=== PATIENT | female | born 1980 | race Caucasian/White ===

== ENCOUNTER 2016-06-01 15:48 | Emergency (ER) | payer MEDICAID ==
--- NOTE | 2016-06-01 16:28 | ED Physician Chart ---
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 SHE NOW IS CONCERNED ABOUT THE PAIN AND ABRASION IN THE ACHILLES AREA. Allergies:: Allergies Allergy/AdvReac Type Severity Reaction Status Date / Time No Known Allergies Allergy Verified 06/01/16 16:01 Vitals:: Vital Signs - 8 hr 06/01/16 06/01/16 16:03 16:04 Temp 99.2 F HR 94 RR 16 BP 104/79 104/79 O2 Sat % 98 Historian:: Patient Review:: Nurse's Note Reviewed Review of Systems - Review of Systems General/Constitutional: No fever, No chills, No weight loss, No weakness, No diaphoresis, No edema, No loss of appetite Skin: No skin lesions, No rash, No bruising Head: No headache, No light-headedness Eyes: No loss of vision, No pain, No diplopia ENT: No earache, No nasal drainage, No sore throat, No tinnitus Neck: No neck pain, No swelling, No thyromegaly, No stiffness, No mass noted Cardio Vascular: No chest pain, No palpitations, No PND, No orthopnea, No edema Pulmonary: No SOB, No cough, No sputum, No wheezing GI: No nausea, No vomiting, No diarrhea, No pain, No melena, No hematochezia, No constipation, No hematemesis G/U: No dysuria, No frequency, No hematuria Musculoskeletal: Bone or joint pain (HEEL AREA OF THE FOOT HURTS), No back pain , No muscle pain Endocrine: No polyuria, No polydipsia Psychiatric: No prior psych history, No depression, No anxiety, No suicidal ideation Hematopoietic: No bruising, No lymphadenopathy Allergic/Immuno: No urticaria, No angioedema Neurological: No syncope, No focal symptoms, No weakness, No paresthesia, No headache, No seizure, No dizziness, No confusion, No vertigo Past Medical History - Past Medical History Obtainable: Yes Past Medical History: No significant medical hx Family History: None Social History: Non Smoker, No Alcohol, No Drug Use, Employed Surgical History: , other (TUBILIZATION) Family Medical History - Family Member Mother History Unknown: Yes Hx Family Coronary Artery Disease: Yes Hx Family Hypertension: Yes Physical Exam - Physical Examination General/Constitutional: Awake, Well-developed, well-nourished, Alert, No distress, GCS 15, Non-toxic appearing, Ambulatory Head: Atraumatic Eyes: Lids, conjuctiva normal, PERRL, EOMI Skin: Nl inspection, No rash, No skin lesions, No ecchymosis, Well hydrated, No lymphadenopathy ENMT: External ears, nose nl, Nasal exam nl, Lips, teeth, gums nl Neck: Nontender, Full ROM w/o pain, No JVD, No nuchal rigidity, No bruit, No mass, No stridor Respiratory: Nl effort/Exclusion, Clear to Auscultation, No Wheeze/Rhonchi/Rales Cardio Vascular: RRR, No murmur, gallop, rubs, NL S1 S2 GI: No tenderness/rebounding/guarding, No organomegaly, No hernia, Normal BS's, Nondistended, No mass/bruits, No McBurney tenderness : No CVA tenderness Extremities: Full ROM, normal strength in all extremities, No edema, Normal digits & nails Other Extremities comments:: THERE IS A TENDER AND SWOLLEN AREA OF THE ACHILLES TENDON. Neuro/Psych: Alert/oriented, DTR's symmetric, Normal sensory exam, Normal motor strength, Judgement/insight normal, Mood normal, Normal gait, No focal deficits Misc: normal gait, Normal back, No paraspinal tenderness Labs/Radiology/EKG Results - Radiology Results Results: X-RAY OF THE RIGHT FOOT = NEG FOR FRACTURE ED Septic Shock - . Is Septic Shock (SBP<90, OR Lactate>4 mmol\L) present?: No - <6hrs of presentation: Vital Signs: Vital Signs - 8 hr 06/01/16 06/01/16 16:03 16:04 Temp 99.2 F HR 94 RR 16 BP 104/79 104/79 O2 Sat % 98 Reassessment (Disposition) - Reassessment Reassessment Condition:: Improved - Diagnosis Diagnosis:: CONTUSION AND ABRASION OF THE RIGHT FOOT. - Aftercare/Follow up Instructions Aftercare/Follow-Up Instructions:: Counseled pt regarding lab results/diagnosis & need follow up, Refer to Discharge Instructions, Counseled pt & family regarding lab results/diagnosis & need follow up - Patient Disposition Discharge/Transfer:: Home Condition at Disposition:: Improved ED Discharge Plan - Patient Disposition Admit/Discharge/Transfer: PT DISCHARGED HOME Condition at Disposition: Improved
[2016-06-01 17:28] VITALS: BP 104/79
--- NOTE | 2016-06-02 10:29 | Diagnostic Imaging Report ---
Right foot (3 views) HISTORY: Pain, trauma No acute bony abnormalities are seen. No fractures. Joint spaces appear normal. IMPRESSION: No acute abnormalities. In the presence of recent trauma and persistent symptoms, a repeat radiograph in 5-7 days may be helpful for detection of a subtle or occult fracture.
== END 2016-06-01 17:15 | disposition home or self-care (01) ==
LOC: ER 15:48
DX: S90.31XA Contusion of right foot, initial encounter (principal); W22.8XXA Striking against or struck by other objects, initial encounter; Y93.89 Activity, other specified; Y92.89 Other specified places as the place of occurrence of the external cause; Y99.8 Other external cause status
CPT/HCPCS: 73630-TC-RT; Z7502

== ENCOUNTER 2017-06-26 08:21 | Emergency (ER) | payer MEDICAID ==
--- NOTE | 2017-06-26 11:04 | ED Physician Chart ---
ED Chief Complaint/HPI - Patient Information Date Seen:: 06/26/17 Time Seen:: 08:20 Chief Complaint:: Fever History of Present Illness:: onset x 3 days of fever, S/T, cough, and congestion; pt denies trauma, H/As, E/ As, neck pain, C/P, SOB, Abd. 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 Allergies:: Allergies Allergy/AdvReac Type Severity Reaction Status Date / Time No Known Allergies Allergy Verified 06/01/16 16:01 Vitals:: Vital Signs - 8 hr 06/26/17 06/26/17 08:22 08:42 Temp 98.7 F 98.7 F HR 106 106 RR 16 16 BP 106/63 106/63 Historian:: Patient Review:: Nurse's Note Reviewed ED Review of Systems - Review of Systems General/Constitutional: Fever, No chills, No weight loss, No weakness, No diaphoresis, No edema, No loss of appetite Skin: No skin lesions, No rash, No bruising Head: No headache, No light-headedness Eyes: No loss of vision, No pain, No diplopia ENT: No earache, Nasal drainage, Sore throat, No tinnitus Neck: No neck pain, No swelling, No thyromegaly, No stiffness, No mass noted Cardio Vascular: No chest pain, No palpitations, No PND, No orthopnea, No edema Pulmonary: No SOB, Cough, No sputum, No wheezing GI: No nausea, No vomiting, No diarrhea, No pain, No melena, No hematochezia, No constipation, No hematemesis G/U: No dysuria, No frequency, No hematuria Sponge Packer: No vaginal discharge, No abnormal vaginal bleed, No contraction Musculoskeletal: No bone or joint pain, No back pain, No muscle pain Endocrine: No polyuria, No polydipsia Psychiatric: No prior psych history, No depression, No anxiety, No suicidal ideation, No homicidal ideation, No auditory hallucination, No visual hallucination Hematopoietic: No bruising, No lymphadenopathy Allergic/Immuno: No urticaria, No angioedema Neurological: No syncope, No focal symptoms, No weakness, No paresthesia, No headache, No seizure, No dizziness, No confusion, No vertigo ED Past Medical History - Past Medical History Obtainable: Yes Past Medical History: No significant medical hx Family History: None Social History: Non Smoker, No Alcohol, No Drug Use, Surgical History: None Psychiatricy History: None Medication: Reviewed Family Medical History - Family Member Mother History Unknown: Yes Hx Family Coronary Artery Disease: Yes Hx Family Hypertension: Yes ED Physical Exam - Physical Examination General/Constitutional: Awake, Well-developed, well-nourished, Alert, No distress, GCS 15, Non-toxic appearing, Ambulatory Head: Atraumatic Eyes: Lids, conjuctiva normal, PERRL, EOMI Skin: Nl inspection, No rash, No skin lesions, No ecchymosis, Well hydrated, No lymphadenopathy ENMT: External ears, nose nl, TM canals nl, Nasal exam nl, Lips, teeth, gums nl , Tonsils nl Other ENMT comments:: Pharynx: Injected; no FBs; no exudates; no abscesses; + Nasal Congestion; Tonsils: WNL Neck: Nontender, Full ROM w/o pain, No JVD, No nuchal rigidity, No bruit, No mass, No stridor Other Neck comments:: supple; no meningeal signs; no cervical tenderness Respiratory: Nl effort/Exclusion, Clear to Auscultation, No Wheeze/Rhonchi/Rales Cardio Vascular: RRR, No murmur, gallop, rubs, NL S1 S2, Carotid/Femoral/Distal pulses equal bilaterally GI: No tenderness/rebounding/guarding, No organomegaly, No hernia, Normal BS's, Nondistended, No mass/bruits, No McBurney tenderness, Rectum exam nl Other GI comments:: no pulsatile masses : No CVA tenderness Extremities: No tenderness or effusion, Full ROM, normal strength in all extremities, No edema, Normal digits & nails Neuro/Psych: Alert/oriented, DTR's symmetric, Normal sensory exam, Normal motor strength, Judgement/insight normal, Mood normal, Normal gait, No focal deficits Other Neuro/Psych comments:: no focal signs Misc: Normal back, No paraspinal tenderness ED Septic Shock - . Is Septic Shock (SBP<90, OR Lactate>4 mmol\L) present?: No - <6hrs of presentation: Vital Signs: Vital Signs - 8 hr 06/26/17 06/26/17 08:22 08:42 Temp 98.7 F 98.7 F HR 106 106 RR 16 16 BP 106/63 106/63 ED Reassessment (Disposition) - Reassessment Reassessment:: pt tolerated po fluids well in ER; pt is asymptomatic upon discharge Reassessment Condition:: Improved - Diagnosis Diagnosis:: Sore Throat; Pharyngitis; Cough; Bronchitis; Congestion; Sinusitis; Fever; URI - Aftercare/Follow up Instructions Aftercare/Follow-Up Instructions:: Counseled pt regarding lab results/diagnosis & need follow up, Refer to Discharge Instructions, Counseled pt & family regarding lab results/diagnosis & need follow up Medication Prescribed:: Rx: Amoxicillin 500mg po tid x 10 days; Tylenol 500mg po qid prn fever/pain; Salt Water Gargles; Cool Mist Vaporizer; encourage fluids - Patient Disposition Discharge/Transfer:: Home Condition at Disposition:: Stable, Improved (RTER prn if existing s/s reoccur and/or get worse and/or any other new s/s occur; ACIs given for all above Dx; Refer to ENT Specialist/Orthopedic Technician TREVOR; F/U with PMD in one day or prn; RTER prn if concerned) ED Discharge Plan - Patient Disposition Admit/Discharge/Transfer: PT DISCHARGED HOME Condition at Disposition: Stable Prescriptions: Acetaminophen [Tylenol Extra Strength] 500 mg PO Q6HR PRN #20 tab PRN Reason: Fever > 101 Amoxicillin [Amoxicillin*] 500 mg PO TID #30 tab Instructions: Upper Respiratory Infection, Adult, [id number] Additional Instructions: Follow up with PCP in 24-48 hours. Return to ED if condition worsens. Take medications as prescribed. Forms: Work Release Form
== END 2017-06-26 08:55 | disposition home or self-care (01) ==
LOC: ER 08:21
DX: J02.9 Acute pharyngitis, unspecified (principal); J40 Bronchitis, not specified as acute or chronic; J32.9 Chronic sinusitis, unspecified; J06.9 Acute upper respiratory infection, unspecified
CPT/HCPCS: Z7502

== ENCOUNTER 2018-03-11 10:29 | Inpatient (IN) | payer MEDICAID ==
[2018-03-11] MEDS ORDERED: Sodium Chloride 0.9% 1,000 ML IV ONE (11:04)
[2018-03-11] MEDS ORDERED: Morphine Sulfate 2 mg/mL 1mL Syr IVP ONE (11:04)
--- NOTE | 2018-03-11 11:09 | ED Physician Chart ---
ED Chief Complaint/HPI - Patient Information Date Seen:: 03/11/18 Time Seen:: 10:55 Chief Complaint:: Abdominal Pain History of Present Illness:: onset x 3 weeks of intermittent, diffuse, crampy abdominal pain, N/V/D; pt denies trauma, H/As, S/T, neck pain, cough, C/P, SOB, A/C, Vb, VD, bleeding, fever, chills, or urinary s/s Allergies:: Allergies Allergy/AdvReac Type Severity Reaction Status Date / Time No Known Allergies Allergy Verified 06/01/16 16:01 Vitals:: Vital Signs - 8 hr 03/11/18 10:58 Temp 97.8 F HR 84 RR 16 BP 123/79 O2 Sat % 97 Historian:: Patient Review:: Nurse's Note Reviewed ED Review of Systems - Review of Systems General/Constitutional: No fever, No chills, No weight loss, No weakness, No diaphoresis, No edema, No loss of appetite Skin: No skin lesions, No rash, No bruising Head: No headache, No light-headedness Eyes: No loss of vision, No pain, No diplopia ENT: No earache, No nasal drainage, No sore throat, No tinnitus Neck: No neck pain, No swelling, No thyromegaly, No stiffness, No mass noted Cardio Vascular: No chest pain, No palpitations, No PND, No orthopnea, No edema Pulmonary: No SOB, No cough, No sputum, No wheezing GI: Nausea, Vomiting, Diarrhea, Pain, No melena, No hematochezia, No constipation, No hematemesis G/U: No dysuria, No frequency, No hematuria, No nacturia Clinic Assistant: No vaginal discharge, No abnormal vaginal bleed, No contraction Musculoskeletal: No bone or joint pain, No back pain, No muscle pain Endocrine: No polyuria, No polydipsia Psychiatric: No prior psych history, No depression, No anxiety, No suicidal ideation, No homicidal ideation, No auditory hallucination, No visual hallucination Hematopoietic: No bruising, No lymphadenopathy Allergic/Immuno: No urticaria, No angioedema Neurological: No syncope, No focal symptoms, No weakness, No paresthesia, No headache, No seizure, No dizziness, No confusion, No vertigo ED Past Medical History - Past Medical History Obtainable: Yes Past Medical History: No significant medical hx Family History: None Social History: Non Smoker, No Alcohol, No Drug Use, Single Surgical History: Psychiatricy History: None Medication: Reviewed Family Medical History - Family Member Mother History Unknown: Yes Hx Family Coronary Artery Disease: Yes Hx Family Hypertension: Yes ED Physical Exam - Physical Examination General/Constitutional: Awake, Well-developed, well-nourished, Alert, No distress, GCS 15, Non-toxic appearing, Ambulatory Head: Atraumatic Eyes: Lids, conjuctiva normal, PERRL, EOMI Skin: Nl inspection, No rash, No skin lesions, No ecchymosis, Well hydrated, No lymphadenopathy ENMT: External ears, nose nl, TM canals nl, Nasal exam nl, Lips, teeth, gums nl , Oropharynx nl, Tonsils nl Neck: Nontender, Full ROM w/o pain, No JVD, No nuchal rigidity, No bruit, No mass, No stridor Respiratory: Nl effort/Exclusion, Clear to Auscultation, No Wheeze/Rhonchi/Rales Cardio Vascular: RRR, No murmur, gallop, rubs, NL S1 S2, Carotid/Femoral/Distal pulses equal bilaterally GI: No tenderness/rebounding/guarding, No organomegaly, No hernia, Normal BS's, Nondistended, No mass/bruits, No McBurney tenderness : No CVA tenderness Extremities: No tenderness or effusion, Full ROM, normal strength in all extremities, No edema, Normal digits & nails Neuro/Psych: Alert/oriented, DTR's symmetric, Normal sensory exam, Normal motor strength, Judgement/insight normal, Mood normal, Normal gait, No focal deficits Misc: Normal back, No paraspinal tenderness ED Labs/Radiology/EKG Results - Lab Results Comments:: Reviewed - EKG Interpretations EKG Time:: 11:30 Rate & Rhythm: 85; NSR Comments:: non-specific st-t changes ED Septic Shock - . Is Septic Shock (SBP<90, OR Lactate>4 mmol\L) present?: No - <6hrs of presentation: Vital Signs: Vital Signs - 8 hr 03/11/18 10:58 Temp 97.8 F HR 84 RR 16 BP 123/79 O2 Sat % 97 ED Reassessment (Disposition) - Diagnosis Diagnosis:: Abdominal Pain, N/V/D
[2018-03-11 11:34] LABS: % EOSINOPHILS 0.9 % (0.0-5.0); % LYMPHOCYTES 12.2 % (20.0-50.0); % MONOCYTES 4.3 % (2.0-10.0); % NEUTROPHILS 82.6 % (40.0-80.0); EOSINOPHILE ABSOLUTE 0.1 Th/cmm (0.1-0.4); HEMATOCRIT 43.1 % (41.0-60); HEMOGLOBIN 14.4 gm/dL (12-16); LYMPHOCYTE ABSOLUTE 1.8 Th/cmm (1.5-3.0); MEAN CELL VOLUME 92.3 fl (81-100); MEAN CORPUSCULAR HEMOGLOBIN 30.8 pg (27.0-31.0); MEAN CORPUSCULAR HGB CONC 33.3 pg (28.0-36.0); MEAN PLATELET VOLUME 8.9 fl; MONOCYTE ABSOLUTE 0.6 Th/cmm (0.3-1.0); NEUTROPHILE ABSOLUTE 12.2 Th/cmm (1.8-8.0); PLATELET COUNT 305 Th/cmm (150-400); RED BLOOD COUNT 4.67 Mil/cmm (3.80-5.10); RED CELL DISTRIBUTION WIDTH 13.9 % (11.5-20.0); WHITE BLOOD COUNT 14.7 Th/cmm (4.8-10.8)
[2018-03-11] MEDS ORDERED: Morphine Sulfate 2 mg/mL 1mL Syr ONE (11:34)
[2018-03-11 11:40] LABS: INR 0.95 (0.5-1.4); PROTHROMBIN TIME (TEST) 9.9 SECONDS (9.5-11.5)
[2018-03-11] MEDS ORDERED: IOHEXOL 300mgI/mL 100 ML VIAL ONE (12:37)
[2018-03-11 13:11] LABS: ALB/GLOB RATIO 1.3 (1.0-1.8); ALBUMIN 4.1 gm/dL (3.7-5.3); ALKALINE PHOSPHATASE 96 U/L (34-104); AMYLASE SERUM 106 U/L (29-103); ANION GAP 16.3 (7.0-16.0); BILIRUBIN,TOTAL 0.5 mg/dL (0.3-1.0); BUN - UREA NITROGEN 10 mg/dL (7-25); CALCIUM SERUM 9.6 mg/dL (8.6-10.3); CARBON DIOXIDE 20.6 mEq/L (21.0-31.0); CHLORIDE 107 mEq/L (98-107); CHOLESTEROL 160 mg/dL (<200); CREATININE - SERUM 0.7 mg/dL (0.6-1.2); CREATININE KINASE 151 U/L (30-223); GFR AFRICAN-AMERICAN > 60.0 ml/min (>90); GFR NON AFRICAN-AMERICAN > 60.0 ml/min; GLUCOSE 87 mg/dL (70-105); HDL -HIGH DENSITY LIPOPROTEIN 64 mg/dL (23-92); LIPASE 66 U/L (11-82); POTASSIUM SERUM 3.9 mEq/L (3.5-5.1); SGOT 45 U/L (13-39); SGPT/ALT 48 U/L (7-52); SODIUM SERUM 140 mEq/L (136-145); TOTAL PROTEIN,SERUM 7.2 gm/dL (6.0-8.3); TRIGLYCERIDES 70 mg/dL (<150)
--- NOTE | 2018-03-11 14:35 | Diagnostic Imaging Report ---
CT scan abdomen and pelvis with intravenous contrast HISTORY: Pain Total DLP equals 519 CTDI equals 10.9 Following administration of intravenous contrast, axial sections were obtained from the xiphoid process down to the pubic symphysis. The liver exhibits a normal size and contour. There is a homogeneous parenchyma. No focal lesions. The spleen appears normal. No abnormality seen in the region of the pancreas. No focal renal lesions. No hydronephrosis. The exam of the pelvis demonstrates preservation of normal fat planes. No abnormal soft tissue masses. Small amount of free fluid seen in the cul-de-sac region of the pelvis. Limited visualization of the pancreas with no obvious evidence of inflammatory change in the right lower quadrant. IMPRESSION: 1. Small amount of free fluid within the cul-de-sac region of the pelvis. This may be on a physiologic basis and should be correlated clinically and with the menstrual status. If necessary, a follow-up ultrasound exam may be helpful. 2. Mildly distended stool-filled cecum and proximal ascending colon. Limited delineation of the appendix. However, no obvious inflammatory change seen in the right lower quadrant.
[2018-03-11 16:53] LABS: URINE SOURCE CLEAN C
[2018-03-11 16:55] LABS: URINE BILIRUBIN NEGATIVE (NEGATIVE); URINE BLOOD SMALL (NEGATIVE); URINE GLUCOSE (UA) NEGATIVE (NEGATIVE); URINE KETONE TRACE mg/dL (NEGATIVE); URINE LEUKOCYTE ESTERASE NEGATIVE (NEGATIVE); URINE MICROSCOPIC INDICATED? YES; URINE NITRATE NEGATIVE (NEGATIVE); URINE PH 5.5 (4.6 - 8.0); URINE PROTEIN NEGATIVE (NEGATIVE); URINE UROBILINOGEN 0.2 E.U./dL (0.2 - 1.0)
[2018-03-11 17:01] LABS: URINE CLARITY CLEAR (CLEAR); URINE COLOR YELLOW
[2018-03-11 17:02] LABS: URINE BACTERIA FEW /hpf (NONE SEEN); URINE EPITHELIAL CELLS FEW /lpf (FEW); URINE RBC NONE SEEN /hpf (0-5)
[2018-03-11] MEDS ORDERED: Morphine Sulfate 2 mg/mL 1mL Syr IVP PRN (19:05)
[2018-03-11] MEDS ORDERED: D5-0.45NS 1,000 ML IV ONE (20:00)
[2018-03-11] MEDS ORDERED: metroNIDAZOLE 500mg/NS 100mL 500 MG/100 ML BAG IV SCH (21:00)
[2018-03-11] MEDS ORDERED: Morphine Sulfate 4 mg/mL 1mL Syr IM PRN (21:13)
[2018-03-11] MEDS ORDERED: Lactated Ringer 1,000 ML IV SCH (21:13)
[2018-03-11] MEDS: metroNIDAZOLE 500mg/NS 100mL 500 MG/100 ML BAG IV SCH (22:46)
[2018-03-11] MEDS ORDERED: Piperacillin Sodium/Tazobact 3.375 gm Vial IV ONE (23:49)
[2018-03-12 01:00] VITALS: BP 128/71
[2018-03-12] MEDS ORDERED: Pneumococcal Vaccine 0.5 mL Vial IM ONE (01:25)
[2018-03-12] MEDS ORDERED: metroNIDAZOLE 500mg/NS 100mL 500 MG/100 ML BAG IV ONE (05:13)
[2018-03-12] MEDS ORDERED: Piperacillin Sodium/Tazobact 3.375 gm Vial IV ONE (05:51)
[2018-03-12] MEDS: metroNIDAZOLE 500mg/NS 100mL 500 MG/100 ML BAG IV SCH ×4 (05:52→17:43)
[2018-03-12 06:02] LABS: BASOPHILE ABSOLUTE 0.1 Th/cumm (0-0.2); EOSINOPHILE ABSOLUTE 0.2 Th/cmm (0.1-0.4); HEMATOCRIT 39.1 % (41.0-60); MONOCYTE ABSOLUTE 0.4 Th/cmm (0.3-1.0); NEUTROPHILE ABSOLUTE 4.3 Th/cmm (1.8-8.0)
[2018-03-12 06:07] LABS: % BASOPHILS 1.2 % (0.0-2.0); % EOSINOPHILS 2.8 % (0.0-5.0); % LYMPHOCYTES 26.1 % (20.0-50.0); % MONOCYTES 6.5 % (2.0-10.0); % NEUTROPHILS 63.4 % (40.0-80.0); HEMOGLOBIN 12.9 gm/dL (12-16); LYMPHOCYTE ABSOLUTE 1.7 Th/cmm (1.5-3.0); MEAN CELL VOLUME 92.5 fl (81-100); MEAN CORPUSCULAR HEMOGLOBIN 30.5 pg (27.0-31.0); MEAN CORPUSCULAR HGB CONC 32.9 pg (28.0-36.0); MEAN PLATELET VOLUME 8.6 fl; PLATELET COUNT 251 Th/cmm (150-400); RED BLOOD COUNT 4.23 Mil/cmm (3.80-5.10)
[2018-03-12 06:09] LABS: WHITE BLOOD COUNT 6.7 Th/cmm (4.8-10.8)
[2018-03-12 06:19] LABS: ALB/GLOB RATIO 1.3 (1.0-1.8); ALBUMIN 3.4 gm/dL (3.7-5.3); ALKALINE PHOSPHATASE 75 U/L (34-104); ANION GAP 11.3 (7.0-16.0); BILIRUBIN,TOTAL 0.6 mg/dL (0.3-1.0); BUN - UREA NITROGEN 6 mg/dL (7-25); CALCIUM SERUM 8.5 mg/dL (8.6-10.3); CHLORIDE 108 mEq/L (98-107); CREATININE - SERUM 0.8 mg/dL (0.6-1.2); GFR AFRICAN-AMERICAN > 60.0 ml/min (>90); GFR NON AFRICAN-AMERICAN > 60.0 ml/min; GLUCOSE 92 mg/dL (70-105); LIPASE 11 U/L (11-82); POTASSIUM SERUM 3.3 mEq/L (3.5-5.1); SGOT 35 U/L (13-39); SGPT/ALT 41 U/L (7-52); SODIUM SERUM 142 mEq/L (136-145)
[2018-03-12] MEDS ORDERED: DESVENLAFAXINE SUCCINATE 50 MG PO SCH (09:00)
[2018-03-12] MEDS: methylPREDNISolone SS 40 mg Vial IVP SCH ×3 (09:01→22:17)
[2018-03-12] MEDS: KCL 20mEq/100mL Premix 20 MEQ/100 ML PIGGYBACK IV SCH ×2 (09:01→12:05)
--- NOTE | 2018-03-12 10:06 | History & Physical ---
ADMIT DATE: 03/11/2018 CHIEF COMPLAINT: Diffuse abdominal pain. HISTORY OF PRESENT ILLNESS: A 37-year-old female with no known medical history except for depression, who presented to the ER with a 3-week history of abdominal pain, diffuse, at times colicky, gradually getting worse with nausea, vomiting, and nonbloody diarrhea. The patient states that she started having the symptoms about 3 weeks ago after she drank a glass of milk, but did not think too much of it as pain was not intense and gradually got better, but then apparently she ate some cheese and symptoms reoccurred, more intense with the multiple episodes of nausea, vomiting and diarrhea. She denies any fever, chills or any unusual p.o. intake or recent traveling. She also denies any similar previous episodes in the past. Pertinent findings on admission include a white count of 14.7, gap of [address] of the abdomen and pelvis showin. Small amount of free fluid within the cul-de-sac region of the pelvis. 2. Mildly distended stool filled cecum and proximal ascending colon. Limited delineation of the appendix. The patient has been admitted to the medical floor for further management and care. PAST MEDICAL HISTORY: As noted above. PAST SURGICAL HISTORY: Two C-sections and tubal ligation. FAMILY HISTORY: Mom has a history of hypertension and dad has type 2 diabetes. SOCIAL HISTORY: Denies any tobacco, ETOH or illicit drug usage. ALLERGIES: NKDA. OUTPATIENT MEDICATIONS: Abilify 4 mg every day, BuSpar 300 mg every day, Pristiq 50 mg every day. REVIEW OF SYSTEMS: GENERAL: No recent weight loss. Denies any fever or chills. CARDIAC: No chest pain or palpitations. PULMONARY: No cough or phlegm production. GASTROINTESTINAL: Please refer to the HPI. GENITOURINARY: Denies any UTI symptomatology. NEUROLOGIC: No changes in vision, no headaches and no syncope. PHYSICAL EXAMINATION: VITAL SIGNS: Temperature 97.6, afebrile, pulse 67, respirations 18, BP 123/67, satting 98% on room air. GENERAL: She is a well-developed, well-nourished female, not in acute distress. Awake, alert and oriented x 3, nontoxic appearing. HEAD AND NECK: Normocephalic, atraumatic. Pupils reactive to light. Extraocular movements are intact. Oropharynx moist and clear. CARDIAC: Regular rate and rhythm without any murmurs. LUNGS: Clear to auscultation bilaterally. ABDOMEN: Soft, supple. Currently mildly diffuse on the epigastric area as well as on the right and left upper quadrants. Currently, there is hypoactive bowel sounds. There are no peritoneal signs or rebound noted. EXTREMITIES: Lower extremity, there is no pedal edema. LABORATORY DATA: White count 14.7, otherwise CBC within normal limits. INR 0.95, carbon dioxide was 20, BUN 10, creatinine 0.7. Rest of the chemistries were within normal limits. AST 45, ALT 48, alk phos 96, CPK 151. BNP less than 5, troponin less than 0.01, albumin 4.1. Lipids were within normal limits. Amylase 106. Lipase 66. Urine or serum was negative. UA shows small blood, otherwise within normal limits. DIAGNOSTIC DATA: Please refer to HPI. IMPRESSION: 1. Abdominal pain, likely secondary to colitis versus acute gastroenteritis and less likely appendicitis. 2. Leukocytosis. 3. History of depression. PLAN: The patient has been admitted to the medical floor where she has been placed on IV fluids, IV antibiotics, namely Zosyn and Flagyl as well as pain management. I will also start her on IV steroids and she will be kept on her other medications as scheduled. A GI as well as a surgical consult have been placed for further management and care. [facility]# [id number] MTDGilles
--- NOTE | 2018-03-12 10:32 | Diagnostic Imaging Report ---
Pelvic ultrasound HISTORY: Pain Transabdominal and transvaginal sonographic technique utilized. The uterus measures 6.2 x 3.7 x 4.2 cm. Somewhat heterogeneous myometrium. No discrete focal lesions are seen. The endometrium measures 3.2 mm thickness. Evidence of a minimal amount of fluid within the endometrial canal. The significance should be correlated clinically. The right ovary measures 2.6 x 1.8 x 1.6 cm. No abnormal masses. The left ovary measures 1.8 x 1.7 x 1.5 cm. This is associated several cysts. The largest measures 1.3 cm. Small amount of free fluid noted in the cul-de-sac region of the pelvis. IMPRESSION: 1. Left ovarian cystic changes along with a small amount of free fluid within the cul-de-sac area. Findings may be on a physiologic basis and should be correlated clinically and with the menstrual status. If symptoms persist, a follow-up ultrasound exam may be helpful. 2. Evidence of a minimal amount of fluid within the endometrial canal. The finding should be correlated clinically.
[2018-03-13] MEDS: metroNIDAZOLE 500mg/NS 100mL 500 MG/100 ML BAG IV SCH ×4 (00:01→17:49)
--- NOTE | 2018-03-13 02:26 | Consultation ---
DATE OF CONSULTATION: 03/12/2018 INPATIENT GASTROINTESTINAL CONSULTATION REFERRING PHYSICIAN: Dr. Dejesus. REASON FOR CONSULTATION: Epigastric pain and lower abdominal pain. HISTORY OF PRESENT ILLNESS: This is a 37-year-old female with no significant medical problems, presenting to the hospital with 3 weeks of diffuse abdominal pain originally with epigastric, but progressively involving her abdomen. It was associated with nausea, vomiting, but no hematemesis or coffee-ground emesis. She has also been experiencing diarrhea at the same time without any melena or hematochezia. PAST MEDICAL HISTORY: None. PAST SURGICAL HISTORY: and tubal ligation. FAMILY HISTORY: Ovarian cancer. SOCIAL HISTORY: Denies tobacco, alcohol or IV drug usage. ALLERGIES: None. CURRENT MEDICATIONS: Abilify, Wellbutrin, Ativan, Solu-Medrol, Flagyl, morphine, Zofran, Protonix, Zosyn. REVIEW OF SYSTEMS: Ten point review of system was performed and the pertinent positive was the abdominal pain, nausea, vomiting. All other systems otherwise negative. PHYSICAL EXAMINATION: VITAL SIGNS: Temperature 97.3, breathing 18, pulse of 71, blood pressure 93/51, satting 98%. GENERAL: In no apparent distress. EYES: Anicteric. Normal conjunctivae. HEENT: Normocephalic, atraumatic. Moist mucous membranes. NECK: Soft, supple. CHEST: Clear. No effort. CARDIOVASCULAR: Regular rate and rhythm. ABDOMEN: Soft, nondistended, mildly tender epigastrium and lower abdomen. No rebound or guarding. SKIN: Warm, dry. EXTREMITIES: Reveal no cyanosis. PSYCHOLOGIC: Alert, oriented x 3. CT showed small amount of free fluid in the cul-de-sac, also distended stool filled cecum. LABORATORY DATA: Show white count 6.7, hemoglobin 12.9, platelets 251. INR 0.95. Total bilirubin 0.6, AST 35, ALT 41, alkaline phosphatase 75, lipase is 66. test was negative. IMPRESSION: This is a 37-year-old female with diffuse abdominal pain with a pronounced location, sometimes in the epigastric area, also had nausea and vomiting, cause could be from gastritis, peptic ulcer disease, gallstones, pancreatitis was considered, but less likely given the normal lipase and normal LFTs. The patient also has lower abdominal pain, which could be from constipation, IBS, inflammatory bowel disease, neoplasm, etc. PLAN: 1. EGD, colonoscopy. 2. Provide the patient with Protonix. 3. Check an abdominal ultrasound to rule out gallstones. Thank you for allowing me to participate. Please call me if any questions. JOB# [id number]
[2018-03-13] MEDS ORDERED: Magnesium Citrate 1.75 GM/300 mL Bottle PO ONE (04:07)
[2018-03-13] MEDS: methylPREDNISolone SS 40 mg Vial IVP SCH ×3 (05:50→22:08)
[2018-03-13 06:38] LABS: HEMATOCRIT 39.5 % (41.0-60); HEMOGLOBIN 12.9 gm/dL (12-16); MEAN CELL VOLUME 93.5 fl (81-100); MEAN CORPUSCULAR HEMOGLOBIN 30.5 pg (27.0-31.0); MEAN CORPUSCULAR HGB CONC 32.6 pg (28.0-36.0); MEAN PLATELET VOLUME 8.9 fl; MONOCYTE ABSOLUTE 0.2 Th/cmm (0.3-1.0); NEUTROPHILE ABSOLUTE 13.3 Th/cmm (1.8-8.0); PLATELET COUNT 288 Th/cmm (150-400); RED BLOOD COUNT 4.23 Mil/cmm (3.80-5.10); RED CELL DISTRIBUTION WIDTH 14.1 % (11.5-20.0); WHITE BLOOD COUNT 14.5 Th/cmm (4.8-10.8)
[2018-03-13 06:53] LABS: INR 1.07 (0.5-1.4); PROTHROMBIN TIME (TEST) 11.1 SECONDS (9.5-11.5)
[2018-03-13 07:03] LABS: ALB/GLOB RATIO 1.3 (1.0-1.8); ALBUMIN 3.6 gm/dL (3.7-5.3); ALKALINE PHOSPHATASE 72 U/L (34-104); BILIRUBIN,TOTAL 0.4 mg/dL (0.3-1.0); BUN - UREA NITROGEN 7 mg/dL (7-25); CALCIUM SERUM 8.7 mg/dL (8.6-10.3); CARBON DIOXIDE 22.7 mEq/L (21.0-31.0); CHLORIDE 108 mEq/L (98-107); CREATININE - SERUM 0.6 mg/dL (0.6-1.2); GFR AFRICAN-AMERICAN > 60.0 ml/min (>90); GFR NON AFRICAN-AMERICAN > 60.0 ml/min; GLUCOSE 121 mg/dL (70-105); MAGNESIUM 2.1 mg/dL (1.9-2.7); POTASSIUM SERUM 3.7 mEq/L (3.5-5.1); SGOT 26 U/L (13-39); SGPT/ALT 38 U/L (7-52); SODIUM SERUM 140 mEq/L (136-145); TOTAL PROTEIN,SERUM 6.4 gm/dL (6.0-8.3)
[2018-03-13] MEDS ORDERED: Morphine Sulfate 2 mg/mL 1mL Syr IM PRN (08:00)
[2018-03-13 08:12] LABS: BAND NEUTROPHILE 1 % (0-10); LYMPHOCYTE 7 % (20-50); MONOCYTE 1 % (2-10); NEUTROPHILS 91 % (40-80)
[2018-03-13 08:13] LABS: PLATELET ESTIMATE ADEQUATE (NORMAL)
[2018-03-13] MEDS: buPROPion XL 150 mg T 24 H PO SCH (08:28)
--- NOTE | 2018-03-13 08:42 | Diagnostic Imaging Report ---
Exam: Ultrasound examination the abdomen. HISTORY: Epigastric pain Findings: Real-time ultrasound examination of the abdomen was performed multiple planes. Study was correlated with CT examination of the abdomen pelvis 1 03/11/2018. The study demonstrates normal echogenicity liver parenchyma. Gallbladder free of calculi. The common bile duct measures 3.4 mm. Pancreas not well seen. The right kidney measures 10.0 x 6 x 3.7 cm diameter. Left kidney measures 10.3 x 6.3 x 4.4 cm diameter. There is no evidence for obstructive uropathy or nephrolithiasis. The spleen is intact. IMPRESSION: Unremarkable examination of the abdomen.
[2018-03-13] MEDS ORDERED: Meperidine 50 mg/mL 1mL Syr ONE ×2 (11:36→11:48)
[2018-03-13] MEDS ORDERED: Lidocaine 2% Gel 5 mL TP ONE (12:00)
[2018-03-13] MEDS ORDERED: fentaNYL Citrate 100 mcg/2mL Vial IV ONE (12:00)
[2018-03-13] MEDS ORDERED: Midazolam 1mg/ml 2 ml vial IV ONE (12:00)
[2018-03-13] MEDS ORDERED: Lactated Ringer 1,000 ML IV ONE (12:00)
[2018-03-13] MEDS ORDERED: D5-0.45NS w/10 mEq KCL 1,000 ML IV SCH (13:03)
[2018-03-13] MEDS ORDERED: Diatrizoate Meglumine/Diatri 30 mL Sol ONE (18:08)
[2018-03-14] MEDS: metroNIDAZOLE 500mg/NS 100mL 500 MG/100 ML BAG IV SCH ×2 (00:04→05:13)
--- NOTE | 2018-03-14 00:45 | Operative Report ---
DATE OF SURGERY: 03/13/2018 INPATIENT GASTROINTESTINAL PROCEDURE NOTE PROCEDURE: Endoscopy with biopsy. REFERRING PHYSICIAN: Dr. Leila Dejesus. REASON FOR PROCEDURE: Epigastric pain, nausea and vomiting. CONSENT: Risks, benefits, alternative nature, indication, and possible outcomes were discussed. Mentioned bleeding, infection, perforation, , disability, cardiopulmonary distress and arrest, missed lesion and cancers, need for surgery. The patient expressed understanding and provided informed consent. PREOPERATIVE DIAGNOSES: Epigastric pain, nausea and vomiting. POSTOPERATIVE DIAGNOSIS: Gastritis. MEDICATIONS: Fentanyl 75 mcg, Versed 3 mg, and Benadryl 50 mg. DESCRIPTION OF PROCEDURE: The patient was placed on the left side. Upper endoscope advanced from the mouth and second portion of duodenum. Scope brought back in stomach. Retroflexion view of fundus, cardia, and lesser curvature. Scope was straightened. Biopsies taken. Scope was removed. COMPLICATIONS: None. FINDINGS: 1. GE junction at 35 cm with a normal esophagus. 2. Antral gastritis, status post biopsy. 3. Normal duodenum. RECOMMENDATIONS: 1. Continue Protonix. 2. Follow up on biopsy. 3. Consider colonoscopy if patient is able to take a bowel prep to further evaluate her lower abdominal pain and change in bowel habits. Thank you for allowing me to participate. Please call me if you have any questions. [facility]# [id number]
[2018-03-14 04:41] LABS: HEMATOCRIT 37.2 % (41.0-60); HEMOGLOBIN 12.5 gm/dL (12-16); MEAN CELL VOLUME 91.4 fl (81-100); MEAN CORPUSCULAR HEMOGLOBIN 30.6 pg (27.0-31.0); MEAN CORPUSCULAR HGB CONC 33.5 pg (28.0-36.0); PLATELET COUNT 272 Th/cmm (150-400); RED BLOOD COUNT 4.07 Mil/cmm (3.80-5.10); RED CELL DISTRIBUTION WIDTH 14.2 % (11.5-20.0)
[2018-03-14 04:52] LABS: WHITE BLOOD COUNT 17.3 Th/cmm (4.8-10.8)
[2018-03-14] MEDS: methylPREDNISolone SS 40 mg Vial IVP SCH (05:04)
[2018-03-14 05:16] LABS: ANION GAP 11.7 (7.0-16.0); BUN - UREA NITROGEN 7 mg/dL (7-25); CALCIUM SERUM 8.3 mg/dL (8.6-10.3); CARBON DIOXIDE 22.9 mEq/L (21.0-31.0); CHLORIDE 110 mEq/L (98-107); GLUCOSE 165 mg/dL (70-105); MAGNESIUM 2.2 mg/dL (1.9-2.7); POTASSIUM SERUM 3.6 mEq/L (3.5-5.1); SODIUM SERUM 141 mEq/L (136-145)
[2018-03-14 05:59] LABS: INR 1.17 (0.5-1.4); PROTHROMBIN TIME (TEST) 12.1 SECONDS (9.5-11.5)
[2018-03-14 06:23] LABS: BAND NEUTROPHILE 3 % (0-10); LYMPHOCYTE 7 % (20-50); MONOCYTE 3 % (2-10); NEUTROPHILS 87 % (40-80); PLATELET ESTIMATE ADEQUATE (NORMAL)
[2018-03-14 07:54] LABS: CREATININE - SERUM 0.7 mg/dL (0.6-1.2); GFR AFRICAN-AMERICAN > 60.0 ml/min (>90); GFR NON AFRICAN-AMERICAN > 60.0 ml/min
--- NOTE | 2018-03-14 08:08 | Diagnostic Imaging Report ---
Exam: CT examination of the abdomen pelvis. HISTORY: Abdominal pain Total DLP equals 479 CTDI equals 11.4 Findings: Multiple contiguous thin section of the abdomen pelvis obtained from lower thorax to pubic symphysis with administration of oral contrast material, the study was correlated with the prior exam of 03/11/2018. The study demonstrates normal aeration of lung parenchyma the bases The liver and spleen intact. The stomach distended with contrast material progression through small bowel loops into colon. The kidneys demonstrate no evidence of obstructive uropathy or nephrolithiasis. The visualized pancreas is intact. Slight prominence of pancreatic head is noted clinical correlation recommended. The adrenal glands are normal. No free fluid appreciated. There is no evidence of diverticular disease of diverticulitis. The visualized appendix is intact. The uterus is intact. Small amount of free fluid is noted in cul-de-sac most likely physiological. The urinary bladder is normal. IMPRESSION: Essentially unchanged from prior exam of 02/2918
[2018-03-14] MEDS: buPROPion XL 150 mg T 24 H PO SCH (09:00)
[2018-03-14] MEDS ORDERED: fentaNYL Citrate 100 mcg/2mL Vial IV ONE (11:00)
[2018-03-14] MEDS ORDERED: Midazolam 1mg/ml 2 ml vial IV ONE (11:00)
[2018-03-14] MEDS ORDERED: Lactated Ringer 1,000 ML IV ONE (11:00)
[2018-03-14] MEDS ORDERED: Lidocaine 2% Gel 5 mL TP ONE (11:00)
--- NOTE | 2018-03-14 14:33 | Operative Report ---
DATE OF SURGERY: 03/14/2018 INPATIENT COLONOSCOPY REPORT PROCEDURE PERFORMED: Colonoscopy with biopsy. ENDOSCOPIST: Juan Mcmillan M.D. PREOPERATIVE DIAGNOSES: Abdominal pain, diarrhea, nausea, and vomiting. POSTOPERATIVE DIAGNOSIS: Small internal hemorrhoids. INDICATIONS: The patient is a 37-year-old female who has had on and off diarrhea for the past several weeks, which became so severe that she sought care in the ER and was admitted to the hospital for rule out appendicitis. She had an upper endoscopy yesterday, which was unremarkable. She was planned to have a colonoscopy at that time, but did not tolerate the bowel prep. She was able to drink this last night and thus he is here for colonoscopy today to complete her workup. CONSENT: Informed consent was obtained from the patient. The risks and benefits of procedure were discussed including but not limited to infection, bleeding, perforation, need for surgery, cardiopulmonary complications, missed pathology and . The patient indicated her understanding of these risks, wished to go forward with the procedure and signed the consent form. ANESTHESIA: Versed 4 mg and 75 mcg of fentanyl were given IV. PROCEDURE IN DETAIL: The patient was hooked up to the appropriate monitoring devices including blood pressure, pulse and pulse oximetry. An IV was in place. Oxygen was delivered via nasal cannula throughout the procedure. IV sedation medication was given in divided doses under the direction of the physician. The patient was in the left lateral decubitus position. A rectal exam was performed. Next, a colonoscope introduced in the anus and guided under direct visualization in to the level of the cecum, which was confirmed by the presence of the appendiceal orifice and IC valve, which were photographed. The scope was slowly and carefully withdrawn, making sure to examine the entire mucosa in a careful and systematic fashion. Retroflexion was performed in the rectum prior to scope straightening and withdrawal from the body. There was no obvious sign of complication at the end of the procedure. FINDINGS: The [place] bowel prep score was 3 in all segments of the colon. The terminal ileum was intubated and appeared endoscopically normal without any mucosal ulceration or defect. There were no mass lesions and no colon polyps found on the exam. There was no evidence of any colitis or erythema of the colon. Random colonic biopsies were taken to rule out microscopic colitis. There was no diverticulosis. On retroflexed view in the rectum, there were small internal hemorrhoids, no other pathology was found. IMPRESSION: 1. Small internal hemorrhoids. 2. Otherwise, normal colon. RECOMMENDATIONS: 1. We will follow up the pathology results. If there is microscopic colitis, the patient will be treated appropriately with budesonide and Imodium. 2. Otherwise, the next screening colonoscopy will not be due until the patient turns 52 years old. 3. The patient should consider treatment for irritable bowel syndrome, which include such modalities as dietary changes, probiotic use, Bentyl and regular followup with the GI physician or primary care doctor. 4. We will restart the patient's diet and this can be advanced as tolerated. 5. From a GI standpoint, the patient likely can be discharged. Thank you for allowing me to participate in her care. Please call with any further questions. JOB# [id number]
--- NOTE | 2018-03-14 14:52 | Pathology Report ---
[id number] Collection Date: 03/13/2018 Surgeon: Dr. Sebastian Langston Specimen Description: 1. Duodenum biopsy. 2. Antrum biopsy. Gross Description: Part I: Received in formalin are two mittal soft tissue fragments ranging from 0.1 to 0.2 cm in greatest dimension. Totally submitted in one cassette labeled A. Gross Description: Part II: Received in formalin is a single mittal soft tissue fragment measuring 0.2 cm in greatest dimension. Totally submitted in one cassette labeled B. Microscopic Description: Part I: The histologic sections show duodenal mucosa with intact intestinal villi, showing no evidence for villous abnormality. Diagnosis: Part I: No evidence for celiac disease/sprue (duodenal biopsy). Microscopic Description: Part II: The histologic sections show gastric mucosa with mild chronic inflammation present, consisting of lymphocytes and plasma cells. The Giemsa stain shows no evidence for Helicobacter pylori. Diagnosis: Part II: 1. Mild chronic gastritis, antrum biopsy. 2. The Giemsa stain is negative for Helicobacter pylori. [facility]# [id number] [facility]ITAL[facility]
--- NOTE | 2018-03-16 00:06 | Discharge Summary ---
DATE OF DISCHARGE: 03/14/2018 ADMITTING DIAGNOSES: 1. Abdominal pain with differential including colitis versus acute gastroenteritis versus less likely appendicitis. 2. Leukocytosis. SECONDARY DIAGNOSIS: History of depression/psych disorder. DISCHARGE DIAGNOSES: Abdominal pain, nonspecific, likely secondary to diverticulitis. CONSULTANTS: GI (Dr. Langston, Dr. Mcmillan, GI). MAJOR PROCEDURES: On 03/11/2018, abdominal and pelvic CT showed, 1. Small amount of free fluid within the cul-de-sac region of the pelvis. 2. Mildly distended stool filled cecum and proximal ascending colon. Limited delineation of the appendix; however, no obvious inflammatory changes are seen. On 03/11/2018, there was a pelvic ultrasound showing left ovarian cystic changes along with a small amount of free fluid within the cul-de-sac. Findings may be, i. A physiological basis and should be correlated clinically. ii. Evidence of minimal amount of free fluid within the endometrial canal. On 03/12/2018, there was an abdominal ultrasound showing no acute findings. On 03/12/2018, the patient underwent an upper endoscopy showing, i. Antral gastritis, status post biopsy. ii. Normal duodenum. On 03/13/2018, repeat abdominal and pelvic CT shows essentially unchanged study from prior exam of 03/11/2018. On 03/14/2018, the patient underwent colonoscopy showing, i. Small internal hemorrhoids. ii. Otherwise, normal colon. BRIEF HOSPITAL COURSE: 37-year-old female with no known medical problems except for psych disorder, presented to the ER with a 3-week history of abdominal pain, which was described as diffuse, at times colicky, gradually getting worse with nausea, vomiting, and nonbloody diarrhea. The patient stated that the symptoms started after drinking a glass of milk and then worsening with a piece of cheese that she ate few days later. She came into the ED and underwent the above-mentioned procedures and was admitted to the medical floor and placed on IV fluids, empiric IV antibiotics and pain management. The patient was seen by GI and underwent above-mentioned procedures without any complications. She initially had a white count of 14.7, improving to a level of 6.7 by 03/12/2018; however, the white count went up to 14.5 on 03/13/2018, likely secondary to IV steroids, which were started on hospital day #2. The patient's symptoms improved and she was able to tolerate a soft bland diet by the time of discharge. MEDICATIONS ON DISCHARGE: Zofran 4 mg q.4 p.r.n. for nausea and vomiting, ciprofloxacin 250 b.i.d. x 7 days, Flagyl 500 mg t.i.d. x 7 days, omeprazole 20 mg daily, prednisone taper. DISPOSITION: The patient was discharged home to self-care. I instructed the patient to follow up with her primary care doctor within 3-5 days. Also instructed to return to the ED if symptoms reoccur. The patient is to follow up with GI for final pathology results. [facility]# [id number] [facility]
== END 2018-03-14 12:00 | disposition home or self-care (01) | DRG 241 ==
LOC: ER 10:29 → OBSVTOIN 18:31 → MSI 18:31
PROVIDERS: ADMIT Internal Medicine; ATTEND Internal Medicine
PROC: 0DB68ZX Excision of Stomach, Via Natural or Artificial Opening Endoscopic, Diagnostic (ICD-10-PCS; principal; 2018-03-13)
PROC: 0DBE8ZX Excision of Large Intestine, Via Natural or Artificial Opening Endoscopic, Diagnostic (ICD-10-PCS; 2018-03-14)
DX: K29.70 Gastritis, unspecified, without bleeding (principal); K57.32 Diverticulitis of large intestine without perforation or abscess without bleeding; K52.9 Noninfective gastroenteritis and colitis, unspecified; F32.9 Major depressive disorder, single episode, unspecified; K37 Unspecified appendicitis; K64.8 Other hemorrhoids; Z82.49 Family history of ischemic heart disease and other diseases of the circulatory system; Z83.3 Family history of diabetes mellitus
CPT/HCPCS: 36415-UA; 76700-TC; 76856-TC; 80048-TC; 80053-TC; 80061-TC; 81001-TC; 81025-TC; 82150-TC; 82550-TC; 83690-TC; 83735-TC; 83880-TC; 84484-TC; 84703-TC; 85007-TC; 85025-TC; 85610-TC; 87230-TC; 90799; 93005; 94760; 96374; 96375; C9113; J1200; J2250; J2270; J2405; J2543; J2920; J3010; J3480; J7030; Q9967; X6024; Z7506; Z7508; Z7610